=== PATIENT | male | born 1960 | race Hispanic/Latino ===

== ENCOUNTER 2022-10-07 09:55 | Inpatient (IN) | payer OTHER ==
[~2022-10-07 09:55] MED LIST: Iopamidol-370 76% 500 ML MDV (1 ML CHARGE) ONE
[2022-10-07] MEDS ORDERED: Ondansetron ODT 4 MG TAB ONE (10:20)
[2022-10-07 10:44] LABS: Hemoglobin 11.7 g/dL (14.0-18.0); Mean Corpuscular HGB CONC 33.3 g/dL (32.0-36.0); Mean Corpuscular Hemoglobin 27.5 pg (27.0-31.0); Mean Corpuscular Volume 82.7 fl (78.0-98.0); Mean Platelet Volume 7.2 fL (7.4-10.4); Platelet Count 429 10x3/uL (130-400); RBC Distribution Width 13.3 % (11.5-14.5); Red Blood Cell (RBC) Count 4.26 mill/uL (4.70-6.10); White Blood Cell (WBC) Count 18.7 10x3/uL (4.8-10.8)
[2022-10-07 10:59] LABS: Band 1 % (5-11); Lymphocytes 9 % (21-51); MDiff Complete? YES; Monocytes 4 % (0-10); Neutrophil 86 % (42-75); Platelet Morphology Comment Appears Increased; Polychromasia SLIGHT = 2-3 cells (100X) (0-2/hpf)
[2022-10-07 11:07] LABS: ALT (SGPT) Less than 7 U/L (8-55); AST (SGOT) 10 U/L (5-34); Albumin 3.9 g/dL (3.4-4.8); Alkaline Phosphatase 82 U/L (40-110); Anion Gap 16 mmol/L (10-20); BUN (Urea Nitrogen) 21 mg/dL (8.4-25.7); Bilirubin, Total 0.7 mg/dL (0.2-1.2); Calc. Creatinine Clearance 0 mL/min (70-130); Calcium 9.7 mg/dL (7.8-10.44); Carbon Dioxide 25 mmol/L (23-31); Chloride 103 mmol/L (98-107); Estimated GFR 98; Globulin 4.4 g/dL (2.4-3.5); Glucose 107 mg/dL (80-115); Lipase 33 U/L (8-78); Potassium 3.7 mmol/L (3.5-5.1); Protein, Total 8.3 g/dL (5.8-8.1); Sodium 140 mmol/L (136-145)
[2022-10-07 13:45] LABS: SARS-CoV-2 NAA Rapid Test Not Detected (NotDetected)
[2022-10-07] MEDS ORDERED: Ondansetron PF 4 MG/2 ML Vial IVP PRN (14:10)
[2022-10-07] MEDS ORDERED: hydrALAZINE 20 MG/ML VIAL SLOW IVP PRN (14:14)
[2022-10-07] MEDS ORDERED: Pantoprazole 40 MG VIAL ONE (14:46)
[2022-10-07 16:48] VITALS: BMI 23.3
[2022-10-07] MEDS: Sodium Chloride 0.9% 1,000 ML IV SCH (17:21)
[2022-10-07] MEDS: Acetaminophen 325 MG TAB PO PRN (17:45)
[2022-10-07] MEDS: Pantoprazole 40 MG VIAL IVP SCH (20:54)
[2022-10-08] MEDS ORDERED: Melatonin 3 MG TAB PO PRN (01:14)
[2022-10-08] MEDS: Sodium Chloride 0.9% 1,000 ML IV SCH ×2 (01:47→11:09)
[2022-10-08] MEDS ORDERED: Morphine 2 MG/ML VIAL SLOW IVP SCH (04:30)
[2022-10-08 06:55] LABS: Hemoglobin 10.2 g/dL (14.0-18.0); Mean Corpuscular HGB CONC 33.3 g/dL (32.0-36.0); Mean Corpuscular Hemoglobin 27.8 pg (27.0-31.0); Mean Corpuscular Volume 83.6 fl (78.0-98.0); Mean Platelet Volume 7.3 fL (7.4-10.4); Platelet Count 364 10x3/uL (130-400); RBC Distribution Width 13.1 % (11.5-14.5); Red Blood Cell (RBC) Count 3.66 mill/uL (4.70-6.10); White Blood Cell (WBC) Count 17.6 10x3/uL (4.8-10.8)
[2022-10-08 07:11] LABS: Anion Gap 14 mmol/L (10-20); BUN (Urea Nitrogen) 13 mg/dL (8.4-25.7); Calc. Creatinine Clearance 89 mL/min (70-130); Calcium 8.8 mg/dL (7.8-10.44); Carbon Dioxide 25 mmol/L (23-31); Chloride 106 mmol/L (98-107); Estimated GFR 101; Glucose 110 mg/dL (80-115); Potassium 3.8 mmol/L (3.5-5.1); Sodium 141 mmol/L (136-145)
[2022-10-08 07:43] LABS: Band 4 % (5-11); Eosinophils 3 % (0-10); Lymphocytes 14 % (21-51); MDiff Complete? YES; Monocytes 6 % (0-10); Neutrophil 73 % (42-75); RBC Morphology Normal
[2022-10-08] MEDS: Pantoprazole 40 MG VIAL IVP SCH ×2 (08:33→20:19)
[2022-10-08] MEDS: Morphine 2 MG/ML VIAL SLOW IVP PRN ×4 (08:41→20:20)
[2022-10-08] MEDS ORDERED: Lidocaine 1% PF 5 ML VIAL ONE (10:17)
[2022-10-08] MEDS ORDERED: Dexamethasone 20 MG/5 ML VIAL ONE (10:17)
[2022-10-08] MEDS ORDERED: PROPOFOL 200 MG/20 ML VIAL ONE (10:17)
[2022-10-08] MEDS ORDERED: Ondansetron PF 4 MG/2 ML Vial ONE (10:17)
[2022-10-08] MEDS ORDERED: Lidocaine 4% Patch TD SCH (15:15)
[2022-10-08] MEDS: Acetaminophen 325 MG TAB PO PRN (20:27)
[2022-10-09] MEDS: Sodium Chloride 0.9% 1,000 ML IV SCH ×4 (02:34→23:04)
[2022-10-09] MEDS: Transdermal Patch Removal TOP SCH (02:36)
[2022-10-09] MEDS: Hydrocodone-Acetamin 15 ML UDCUP PO PRN ×3 (02:44→23:38)
[2022-10-09] MEDS: Pantoprazole 40 MG VIAL IVP SCH ×2 (09:21→20:43)
[2022-10-09] MEDS: Lidocaine 4% Patch TD SCH (16:13)
[2022-10-09] MEDS: Acetaminophen 325 MG TAB PO PRN (20:43)
[2022-10-10] MEDS: Transdermal Patch Removal TOP SCH (04:11)
[2022-10-10] MEDS: Hydrocodone-Acetamin 15 ML UDCUP PO PRN ×3 (06:46→19:53)
[2022-10-10 08:30] LABS: #Eosinphils 0.4 thou/uL (0.0-0.7); #Lymphocytes 1.4 thou/uL (1.20-3.40); #Monocytes 1.4 thou/uL (0.11-0.59); #Neutrophils 12.4 thou/uL (1.40-6.50); %Basophils 0.3 % (0.0-1.0); %Eosinophils 2.7 % (0.0-10.0); %Lymphocytes 9.2 % (21.0-51.0); %Monocytes 8.6 % (0.0-10.0); %Neutrophils 79.2 % (42.0-75.0); Mean Corpuscular HGB CONC 32.2 g/dL (32.0-36.0); Mean Corpuscular Hemoglobin 26.9 pg (27.0-31.0); Mean Corpuscular Volume 83.6 fl (78.0-98.0); Mean Platelet Volume 7.5 fL (7.4-10.4); Platelet Count 292 10x3/uL (130-400); RBC Distribution Width 12.9 % (11.5-14.5); Red Blood Cell (RBC) Count 3.34 mill/uL (4.70-6.10); White Blood Cell (WBC) Count 15.6 10x3/uL (4.8-10.8)
[2022-10-10] MEDS: Pantoprazole 40 MG VIAL IVP SCH ×2 (08:37→19:54)
[2022-10-10] MEDS ORDERED: Polyethylene Glycol 3350 17 GM Packet PO SCH (09:00)
[2022-10-10] MEDS: Sodium Chloride 0.9% 1,000 ML IV SCH ×2 (10:33→19:57)
[2022-10-10] MEDS: Lidocaine 4% Patch TD SCH (14:47)
[2022-10-11 01:45] VITALS: BP 124/76; TEMP 98.7
== END 2022-10-11 01:45 | disposition short-term general hospital (02) | DRG 376 ==
LOC: ERS 09:55 → EEVIPCON 14:18 → ERHOLD 14:18 → T4-A 16:22
PROVIDERS: ADMIT Internal Medicine; ATTEND Family Medicine
PROC: 0DB38ZX Excision of Lower Esophagus, Via Natural or Artificial Opening Endoscopic, Diagnostic (ICD-10-PCS; principal; 2022-10-08)
DX: C15.5 Malignant neoplasm of lower third of esophagus (principal); K21.9 Gastro-esophageal reflux disease without esophagitis; I10 Essential (primary) hypertension; G40.909 Epilepsy, unspecified, not intractable, without status epilepticus; Z20.822 Contact with and (suspected) exposure to COVID-19; E78.00 Pure hypercholesterolemia, unspecified; Z79.899 Other long term (current) drug therapy
CPT/HCPCS: 36415; 71260; 80048; 80053; 83690; 85025; 88305; 88341; 88342; 96374; C9113; J1100; J2272; J2405; J2704; J7050; Q0162; Q9967; U0002